=== PATIENT | female | born 2000 | race Caucasian/White ===

== ENCOUNTER 2018-09-12 20:24 | Emergency (ER) | payer SELFPAY ==
[~2018-09-12] VITALS: Ht 167.6 cm; Wt 59.0 kg
[2018-09-12 20:35] VITALS: BP 96/57
[2018-09-12] MEDS ORDERED: DiphenhydrAMINE 50mg/ml Inj IVP ONE (20:45)
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
[2018-09-12] MEDS ORDERED: Dexamethasone 20mg/5ml IVP ONE (21:00)
--- NOTE | 2018-09-12 21:07 | Diagnostic Imaging Report ---
Indication: Headache Technique: Contiguous 5 mm thick transaxial imaging of the head obtained in a Siemens Sensation [address] scanner. Soft tissue and bone windows generated. Automatic Exposure Control was utilized. Total Dose length Product (DLP): 1354.[address] Dose Index Volume (CTDIvol): 70.38 mGy Comparison: none Findings: The size and configuration of the cortical sulci, basal cisterns, and ventricles are within normal limits for age. There is no mass effect, midline shift, or edema identified. There is no evidence of acute hemorrhage or abnormal intra-axial or extra-axial fluid collections. The bones and soft tissues are unremarkable. Impression: No mass effect, edema or acute bleed. [facility] has communicated the preliminary results to the Emergency Department. Their findings are largely concordant with this report. The CT scanner at [facility] is accredited by the [employer] and the scans are performed using dose optimization techniques as appropriate to a performed exam including Automatic Exposure control.
[2018-09-12 21:50] VITALS: BP 96/57
--- NOTE | 2018-09-12 21:50 | NUR ---
ER DISCHARGE NOTE: Patient is cleared to be discharged per ERMD, pt is aox4, on room air, with stable vital signs. pt was given dc and prescription instructions, pt was able to verbalize understanding, pt id band and iv site removed without complications. pt is able to ambulate with steady gait. pt took all belongings.
== END 2018-09-12 21:50 | disposition home or self-care (01) ==
LOC: EMR 21:02
DX: R51 Headache (principal); S06.0X9A Concussion with loss of consciousness of unspecified duration, initial encounter; V49.9XXA Car occupant (driver) (passenger) injured in unspecified traffic accident, initial encounter; Y92.410 Unspecified street and highway as the place of occurrence of the external cause
CPT/HCPCS: 70450; 81025; 96361; 96374; 96375; 99284; J0780; J1100; J1200